=== PATIENT | female | born 1950 | race Two or more races ===

== ENCOUNTER 2024-09-16 09:23 | Inpatient (IN) | payer MEDICARE, MEDICAID ==
[2024-09-16] VITALS (9 sets, daily range): BP systolic 131–147; BP diastolic 60–90; PULSE 60–110; RESP 12–20; TEMP 97.7–98.1; O2SAT 90–99
[~2024-09-16] VITALS: Ht 170.2 cm; Wt 96.6 kg
--- NOTE | 2024-09-16 09:36 | ED.PDOC ---
SOB-HPI HPI Comments 73 y/o F, BIBA, with PMHx of HTN, HLD, COPD, CHF, and anxiety presents to the ED for CC of cp, sob. EMS reports, patient is coming from [facility] where she c/o shortness of breath with associated chest pain x1day. EMS relays, image studies done at the facility show new onset, CHF. Patient denies current chest pain, palpitations, headache, fatigue, or weakness. No other symptoms or modifying factors present at this time. 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 Family History Family History: Unknown Social History Smoker: Quit Less Than 1 Year Alcohol: Denies ETOH Use Drugs: Denies Drug Use Lives In: Home Constitutional: denies: chills, diaphoresis, fatigue, fever, malaise, sweats, weakness, others EENTM: denies: blurred vision, double vision, ear bleeding, ear discharge, ear drainage, ear pain, ear ringing, eye pain, eye redness, hearing loss, mouth pain, mouth swelling, nasal discharge, nose bleeding, nose congestion, nose pain, photophobia, tearing, throat pain, throat swelling, voice changes, others Respiratory: reports: shortness of breath; denies: cough, hemoptysis, orthopnea, SOB at rest, SOB with excertion, stridor, wheezing, others Cardiovascular: reports: chest pain; denies: dizzy spells, diaphoresis, Dyspnea on exertion, edema, irregular heart beat, left arm pain, lightheadedness, palpitations, PND, syncope, others Gastrointestinal: denies: abdomen distended, abdominal pain, blood streaked bowels, constipated, diarrhea, dysphagia, difficulty swallowing, hematemesis, melena, nausea, poor appetite, poor fluid intake, rectal bleeding, rectal pain, vomiting, others Genitourinary: denies: abnormal vagina bleeding, burning, dyspareunia, dysuria, flank pain, frequency, hematuria, incontinence, pain, , vagina discharge, urgency, others Neurological: denies: dizziness, fainting, headache, left sided numbness, left sided weakness, numbness, paresthesia, pre-existing deficit, right sided numbness, right sided weakness, seizure, speech problems, tingling, tremors, weakness, others Musculoskeletal: denies: back pain, gout, joint pain, joint swelling, muscle pain, muscle stiffness, neck pain, others Integumetry: denies: bruises, change in color, change in hair/nails, dryness, laceration, lesions, lumps, rash, wounds, others Allergic/Immunocompromised: denies: Difficulty Healing, Frequent Infections, Hives, Itching, others Hematologic/Lymphatic: denies: anemia, blood clots, easy bleeding, easy bruising, swollen glands, others Endocrine: denies: excessive hunger, excessive sweating, excessive thirst, excessive urination, flushing, intolerance to cold, intolerance to heat, unexplained weight gain, unexplained weight loss, others Psychiatric: denies: anxiety, bipolar disorder, depression, hopeless, panic disorder, schizophrenia, sleepless, suicidal, others All Other Systems: Reviewed and Negative Physical Exam General Appearance: No Apparent Distress, Normal HEENT: Normal ENT Inspection, Pharynx Normal Neck: Full Range of Motion, Non-Tender, Normal, Normal Inspection Respiratory: Chest Non-Tender, Lungs Clear, No Accessory Muscle Use, No Respiratory Distress, Normal Breath Sounds Cardiovascular: No Edema, No Murmur, No Gallop, Normal Peripheral Pulses, Regular Rate/Rhythm Breast Exam: Deferred Gastrointestinal: No Organomegaly, Non Tender, No Pulsatile Mass, Normal Bowel Sounds, Soft Genitalia: Deferred Pelvic: Deferred Rectal: Deferred Extremities: No calf tenderness, Normal capillary refill, Normal inspection, Normal range of motion, Non-tender, No pedal edema Musculoskeletal : Apperance: Normal Neurologic: Alert, 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 Was a procedure done?: No Differential Dx Differential Diagnosis: Anxiety, Asthma, Bronchitis, CHF, COPD, Myocardial infarction, Panic Attack, Pneumonia, Pneumothorax, Pulmonary Embolism, Respiratory Distress, Sinusitis, Pharyngitis, URI X-Ray, Labs, Meds, VS Vital Signs Date Time Temp Pulse Resp B/P (MAP) Pulse Ox O2 Delivery O2 Flow Rate FiO2 09/16/24 09:39 98.4 63 20 147/90 (109) 96 98.4 Lab Test 09/16/24 10:10 Range/Units White Blood Count 11.6 H 4.4-10.8 10^3/uL Red Blood Count 6.06 H 4.0-5.20 10^6/uL Hemoglobin 17.3 H 12.2-16.2 g/dL Hematocrit 51.9 H 36.0-46.0 % Mean Corpuscular Volume 85.6 80.0-100.0 fL Mean Corpuscular Hemoglobin 28.6 28.0-32.0 pg Mean Corpuscular Hemoglobin Concent 33.4 32.0-36.0 g/dL Red Cell Distribution Width 15.3 H 11.8-14.3 % Platelet Count 270 140-450 10^3/uL Mean Platelet Volume 8.6 6.9-10.8 fL Neutrophils (%) (Auto) 69.7 37.0-80.0 % Lymphocytes (%) (Auto) 22.9 10.0-50.0 % Monocytes (%) (Auto) 6.7 0.0-12.0 % Eosinophils (%) (Auto) 0.3 0.0-7.0 % Basophils (%) (Auto) 0.4 0.0-2.0 % Neutrophils # (Auto) 8.1 1.6-8.6 10 ^3/uL Lymphocytes # (Auto) 2.7 0.4-5.4 10 ^3/uL Monocytes # (Auto) 0.8 0-1.3 10 ^3/uL Eosinophils # (Auto) 0 0-0.8 10 ^3/uL Basophils # (Auto) 0 0-0.2 10 ^3/uL Nucleated Red Blood Cells 0.3 % Sodium Level 142 136-145 mmol/L Potassium Level 3.9 3.5-5.1 mmol/L Chloride Level 102 98-107 mmol/L Carbon Dioxide Level 31 20-31 mmol/L Anion Gap 9 5-15 Blood Urea Nitrogen 11 9-23 mg/dL Creatinine 0.80 0.550-1.02 mg/dL Glomerular Filtration Rate Calc 78 >90 mL/min BUN/Creatinine Ratio 13.8 10.0-20.0 Serum Glucose 105 74-106 mg/dL Calcium Level 10.2 8.7-10.4 mg/dL Troponin I High Sensitivity 10 </=34 ng/L B-Type Natriuretic Peptide 53.49 0-100 pg/mL [address] [address] Ph: [phone] DIAGNOSTIC IMAGING Diagnostic Imaging Report : [id number] Signed PATIENT: BLANQUITA GREGG ACCT: [id number] UNIT: [id number] : 1950 LOC: ER ROOM / BED: / AGE / SEX: 73 / F ADM STATUS: REG ER SERVICE 5 ORDERING PHYSICIAN: CINTHYA HERNANDEZ MD PROCEDURE(s): CXRP - CHEST PORTABLE REASON: cp, sob ORDER NUMBER(s): [id number], ACCESSION NUMBER(s): [id number] XY CHEST PORTABLE, HISTORY: cp, sob COMPARISON: None None TECHNICAL DATA: 1 view of the chest was obtained. FINDINGS: Lines and tubes: None Cardiomediastinal silhouette: Prominent Pulmonary vasculature: normal Lung expansion: normal Lung airspace: normal Lung interstitium: normal Pleura: normal Pneumothorax: no Bones: Unremarkable Other: no IMPRESSION: No acute intrathoracic abnormality. Cardiomegaly. ATED BY: ARMEN DAS MD DICTATED DATE/TIME: 09/16/241005 SIGNED BY: ARMEN DAS MD SIGNED DATE/TIME: 09/16/241005 CC: Time of 1ST Reevaluation: 10:00 Reevaluation 1ST: Unchanged Patient Education/Counseling: Diagnosis, Treatment, Prognosis, Need For Follow Up Family Education/Counseling: No Family Present Additional Information The following tests were ordered, and results were reviewed by me: CBC, BMP, B- TYPE NATRIURETIC, TROPONIN, CXR Additional Information was gathered from interviewing the following independent historians: EMS I reviewed and agreed with the following test results read by other providers: CXR I discussed treatment and results with medical personnel and: patient Comprehensive systems review obtained and negative except for what is stated in the HPI. Departure 1 Departure Time of Disposition: 11:33 Impression: Primary Impression: CHF (congestive heart failure) Qualified Codes: I50.21 - Acute systolic (congestive) heart failure Additional Impression: Unstable angina Disposition: ADMITTED INPATIENT Admit to: Tele Condition: Serious Discharged With: Self Critical Care Note Critical Care Time?: Yes (45 min-critical care time only) Critical care comment: pt did not have nuchal rigidity, no rash, no photophobia, no cltered mentation. he has myalgia, as his brother. they likley have a viral infection. he is feeling much improved after toradol. he is stable for discharge Stability Stability form required: No Heart Score Heart Score: Heart Score Response (Comments) Value History Highly Suspicious 2 EKG Repolarization Disturb 1 Age >65 2 Risk Factors >3 or Hx ASHD 2 Troponin Normal limit 0 Total 7 I personally scribed for CINTHYA HERNANDEZ MD ([email or web address]) on 09/16/24 at 09:36. Electronically submitted by Rosalba Hurt ([employer]). I personally scribed for CINTHYA HERNANDEZ MD (DORIANadjust) on 09/16/24 at 09:39. Electronically submitted by Rosalba Hurt ([employer]). I personally scribed for CINTHYA HERNANDEZ MD (CHRISTINAHA) on 09/16/24 at 09:44. Electronically submitted by Rosalba Hutr ([employer]). I personally scribed for CINTHYA HERNANDEZ MD (DORIANLIN) on 09/16/24 at 09:59. Electronically submitted by Rosalba Hurt ([employer]). I personally scribed for CINTHYA HERNANDEZ MD (CHRISTINA) on 09/16/24 at 10:14. Electronically submitted by Rosalba Hurt ([employer]). I personally scribed for CINTHYA HERNANDEZ MD (DORIANLINHA) on 09/16/24 at 10:15. Electronically submitted by Rosalba Hurt ([employer]). CINTHYA HERNANDEZ MD Sep 16, 2024 09:36
--- NOTE | 2024-09-16 10:08 | DVH ---
XY CHEST PORTABLE, HISTORY: cp, sob COMPARISON: None None TECHNICAL DATA: 1 view of the chest was obtained. FINDINGS: Lines and tubes: None Cardiomediastinal silhouette: Prominent Pulmonary vasculature: normal Lung expansion: normal Lung airspace: normal Lung interstitium: normal Pleura: normal Pneumothorax: no Bones: Unremarkable Other: no IMPRESSION: No acute intrathoracic abnormality. Cardiomegaly.
[2024-09-16 10:30] LABS: Eosinophils # (auto) 0 10 ^3/uL (0-0.8); Eosinophils % (auto) 0.3 % (0.0-7.0)
[2024-09-16 10:31] LABS: Basophils # (auto) 0 10 ^3/uL (0-0.2); Basophils % (auto) 0.4 % (0.0-2.0); Hematocrit 51.9 % (36.0-46.0); Hemoglobin 17.3 g/dL (12.2-16.2); Lymphocytes # (auto) 2.7 10 ^3/uL (0.4-5.4); Lymphocytes % (auto) 22.9 % (10.0-50.0); Mean Corpuscular Hemoglobin 28.6 pg (28.0-32.0); Mean Corpuscular Hgb Conc. 33.4 g/dL (32.0-36.0); Mean Corpuscular Volume 85.6 fL (80.0-100.0); Monocytes # (auto) 0.8 10 ^3/uL (0-1.3); Monocytes % (auto) 6.7 % (0.0-12.0); Neutrophils # (auto) 8.1 10 ^3/uL (1.6-8.6); Neutrophils % (auto) 69.7 % (37.0-80.0); Nucleated Red Blood Cells % 0.3 %; Platelet Count (auto) 270 10^3/uL (140-450); Red Blood Cells 6.06 10^6/uL (4.0-5.20); Red Cell Distribution Width 15.3 % (11.8-14.3); White Blood Cell 11.6 10^3/uL (4.4-10.8)
[2024-09-16 10:39] LABS: Chloride 102 mmol/L (98-107); Potassium 3.9 mmol/L (3.5-5.1); Sodium 142 mmol/L (136-145)
[2024-09-16 10:41] LABS: Calcium 10.2 mg/dL (8.7-10.4)
[2024-09-16 10:45] LABS: Glucose 105 mg/dL (74-106)
[2024-09-16 10:46] LABS: BUN/Creatinine Ratio 13.8 (10.0-20.0); Blood Urea Nitrogen 11 mg/dL (9-23)
[2024-09-16 11:15] LABS: Anion Gap 9 (5-15); Carbon Dioxide 31 mmol/L (20-31)
--- NOTE | 2024-09-16 11:43 | DVHHP2 ---
History of Present Illness Reason for Visit: Transfer from [facility] History of Present Illness 73-year-old female past medical history hypertension hyperlipidemia COPD CHF 81 does have home O2 occurs denies any surgical history chief complaint patient appears from [facility] according to her she has been having chest pain and shortness of the breath he has been going on for the last two days patient states the pain in her chest feels like indigestion. She went to a [facility] was seen and did a cardiac workup and they recommended patient to be transferred here for continued cardiac care patient had last completed in D-dimer at [facility] which negative for PE when speaking with the patient felt her heart doctor she stated lost follow up due to insurance issues patient is currently on oxygen with shortness of the breath on exertion she has been back pain or leg swelling I reviewed data from [facility] she was given Lasix 40 mg IV patient appears lisinopril simvastatin Lexapro at home when evaluating patient's labs and imaging white count six hemoglobin 17.36 CMP was unremarkable troponin was negative BNP was chest patient is a smoker sensation with the urine ago with these findings we will admit and cardiac workup or axial potassium steroids for COPD and ask for Cardiology consultation Past Medical History See HPI above Past Surgical History see HPI above Family History Reviewed, non-contributory to the management of this case. Past Social History Patient was a smoker but quit some time ago proximally >1 yr denies drug or alcohol use Review of Systems Constitutional: No: Fever, Chills, Sweats, Weakness, Malaise, Other Eyes: No: Pain, Vision change, Conjunctivae inflammation, Eyelid inflammation, Other, Redness ENT: No: Ear pain, Ear discharge, Nose pain, Nose discharge, Nose congestion, Mouth pain, Mouth swelling, Throat pain, Throat swelling, Other Respiratory: Shortness of breath, SOB with excertion; No: Cough, Dry, Wheezing, Hemoptysis, Pleuritic Pain, Sputum, Wheezing, Other Cardiovascular: Chest Pain; No: Palpitations, Orthopnea, Paroxysmal Noc. Dyspnea, Edema, Lt Headedness, Other Gastrointestinal: No: Nausea, Vomiting, Abdominal Pain, Diarrhea, Constipation, Melena, Hematochezia, Other Genitourinary: No Dysuria, No Frequency, No Incontinence, No Hematuria, No Retention, No Other Musculoskeletal: No: other, neck pain, shoulder pain, arm pain, back pain, hand pain, leg pain, foot pain Skin: No: Rash, Lesions, Jaundice, Bruising, Other Neurological: No: Weakness, Numbness, Incoordination, Change in speech, Confusion, Seizures, Other Allergies: Coded Allergies: NO KNOWN ALLERGIES (Unverified , 09/16/24) Exam Vital Signs Vital Signs Date Time Temp Pulse Resp B/P (MAP) Pulse Ox O2 Delivery O2 Flow Rate FiO2 09/16/24 09:39 98.4 63 20 147/90 (109) 96 98.4 General Appearance: Alert, Oriented X3, Cooperative, No acute distress HEENT: Atraumatic, PERRLA, EOMI, Mucous membr. moist/pink Respiratory: Other (diminished throught) Cardiovascular: Regular rate, Normal S1, Normal S2, No murmurs Abdominal: Normal bowel sounds, Soft, No tenderness, No hepatospenomegaly, No masses Extremities: No clubbing, No cyanosis, No edema, Normal pulses, No tenderness/swelling Skin: No rashes, No breakdown, No significant lesion Neuro: Normal gait, Normal speech, Strength at 5/5 X4 ext, Normal tone, Sensation intact Psych/Mental Status: Mental status NL, Mood NL Labs/Xrays Chest x-ray unremarkable I reviewed labs, imaging CT scan abdomen pelvis, EKG and all diagnostic studies on this patient from ED records and the medical chart Labs Test 09/16/24 10:10 Range/Units White Blood Count 11.6 H 4.4-10.8 10^3/uL Red Blood Count 6.06 H 4.0-5.20 10^6/uL Hemoglobin 17.3 H 12.2-16.2 g/dL Hematocrit 51.9 H 36.0-46.0 % Mean Corpuscular Volume 85.6 80.0-100.0 fL Mean Corpuscular Hemoglobin 28.6 28.0-32.0 pg Mean Corpuscular Hemoglobin Concent 33.4 32.0-36.0 g/dL Red Cell Distribution Width 15.3 H 11.8-14.3 % Platelet Count 270 140-450 10^3/uL Mean Platelet Volume 8.6 6.9-10.8 fL Neutrophils (%) (Auto) 69.7 37.0-80.0 % Lymphocytes (%) (Auto) 22.9 10.0-50.0 % Monocytes (%) (Auto) 6.7 0.0-12.0 % Eosinophils (%) (Auto) 0.3 0.0-7.0 % Basophils (%) (Auto) 0.4 0.0-2.0 % Neutrophils # (Auto) 8.1 1.6-8.6 10 ^3/uL Lymphocytes # (Auto) 2.7 0.4-5.4 10 ^3/uL Monocytes # (Auto) 0.8 0-1.3 10 ^3/uL Eosinophils # (Auto) 0 0-0.8 10 ^3/uL Basophils # (Auto) 0 0-0.2 10 ^3/uL Nucleated Red Blood Cells 0.3 % Sodium Level 142 136-145 mmol/L Potassium Level 3.9 3.5-5.1 mmol/L Chloride Level 102 98-107 mmol/L Carbon Dioxide Level 31 20-31 mmol/L Anion Gap 9 5-15 Blood Urea Nitrogen 11 9-23 mg/dL Creatinine 0.80 0.550-1.02 mg/dL Glomerular Filtration Rate Calc 78 >90 mL/min BUN/Creatinine Ratio 13.8 10.0-20.0 Serum Glucose 105 74-106 mg/dL Calcium Level 10.2 8.7-10.4 mg/dL Troponin I High Sensitivity 10 </=34 ng/L B-Type Natriuretic Peptide 53.49 0-100 pg/mL Assessment/Plan Assessment/Plan acute chest pain r/o acs trop x3 negative ekg no stemi ordered asa atorvastatin ordered Echocardiogram follow-up results ordered ddimer ordered morphine as needed for pain, ordered nitro prn cxr normal ordered ddimer acute on chronic chf exacerbation cxr normal ordered lasix bid ordered echo fu results ordered cards consult fu recs acute copd exacerbation ddimer was negative from outside records cont o2 to keep sats >92% ordered prednisone x 5 days ordered abg fu results chronic problems htn hld copd ordered duoneb prn prednisone chf bnp normal not likely exacerbation cxr normal cont home medication anxiety gerds protonix fen/ppx diet hl scd lovenox no gi ppx since no hx of gerds or gi bleed plan admit to tele cards consult Plan discussed with: Patient Date of Service: Sep 16, 2024 Billing Provider: DONALD OROURKE DNP Common Visit Codes: [id number] INP/OBS CARE (HIGH) DONALD OROURKE DNP Sep 16, 2024 11:43
[2024-09-16] MEDS ORDERED: NITROGLYCERIN 0.4 MG SL TAB SL PRN ×3 (12:15)
[2024-09-16] MEDS ORDERED: DOCUSATE SOD 100 MG CAP PO PRN (12:15)
[2024-09-16] MEDS ORDERED: MORPHINE SULFATE 4 MG/ML SYR/VIAL IV PRN (12:15)
[2024-09-16] MEDS ORDERED: ONDANSETRON HCL 4 MG/2 ML VIAL IV PRN (12:15)
[2024-09-16] MEDS: predniSONE 20 MG TAB PO ONE (12:30)
[2024-09-16] MEDS: PANTOPRAZOLE 40 MG/10 ML VIAL INJ IV ONE (15:48)
[2024-09-16] MEDS: ENOXAPARIN SOD 40 MG/0.4 ML SYRINGE SC SCH (15:49)
[2024-09-16] MEDS: hydrALAZINE HCL 20 MG/ML VL IV ONE (15:49)
[2024-09-16 16:18] LABS: Urine Bacteria None Seen /hpf (None Seen)
[2024-09-16 16:45] LABS: Urine Blood Negative /uL (Negative); Urine Clarity Clear (Clear); Urine Color Light-Yellow (Yellow); Urine Hyaline Cast FEW /lpf (0 - 2); Urine Mucus FEW (None Seen); Urine Protein, UAD TRACE (Negative); Urine Squamous Epithelial Cell None Seen /hpf (<5); Urine Urobilinogen Normal (Negative); Urine WBC 1 /HPF (0-5); Urine pH 5.5 (5.0-9.0)
[2024-09-16] MEDS: amLODIPine BESYLATE 5 MG TAB PO ONE (16:45)
--- NOTE | 2024-09-16 16:47 | DVHINCON2 ---
Date Seen: Sep 16, 2024 Referring Physician Niranjan Reason for Consultation CHF, CP History of Present Illness 73-year-old female with PMH for HLD, HTN, COPD, CHF, hypoxia on home O2 presented to [facility] with chest pain and worsening shortness of breath. Per patient symptoms started approximately 2 days prior and has been having worsening shortness of breath. Started having intermittent chest pain therefore presented to the hospital. Patient is transferred to [facility] for continued care. Chest pain noted to be retrosternal, nonradiating, sharp in nature, reproducible with deep inhalation, associated with shortness of breath. Troponin negative x2. BNP 53. CXR negative for acute intrathoracic abnormality. EKG negative for acute ischemic changes. Past Medical History As stated above Past Surgical History Denies previous cardiac surgeries Family History Denies any pertinent family cardiac history Social History Denies alcohol or illicit drug use, patient was a previous smoker quit approximately 1-2 years ago. Allergies: Coded Allergies: NO KNOWN ALLERGIES (Unverified , 09/16/24) Current Medications Current Medications Medications (Trade) Dose Ordered Sig/Jeanie Route PRN Reason Start Time Stop Time Status Last Admin Ondansetron HCl (Zofran) 4 mg Q4HP PRN IV NAUSEA / VOMITING 09/16/24 12:15 Docusate Sodium (Colace Capsule) 100 mg BIDPRN PRN PO FOR CONSTIPATION 09/16/24 12:15 09/16/24 12:30 DC Morphine Sulfate 2 mg Q4HPRN PRN IV SEVERE PAIN (7-10 PAIN SCALE) 09/16/24 12:15 Enoxaparin Sodium (Lovenox) 40 mg DAILY SC 09/16/24 12:15 09/16/24 15:49 Nitroglycerin (Ntrostat Sublingual) 0.4 mg Q5MINP PRN SL FOR CHEST PAIN 09/16/24 12:15 Aspirin 81 mg DAILY PO 09/17/24 10:00 Atorvastatin Calcium (Lipitor) 40 mg HS PO 09/16/24 22:00 Morphine Sulfate 2 mg Q30MP PRN IV FOR CHEST PAIN 09/16/24 12:15 Docusate Sodium (Colace Capsule) 100 mg DAILY PO 09/17/24 10:00 Nitroglycerin (Ntrostat Sublingual) 0.4 mg Q5MINP PRN SL FOR CHEST PAIN 09/16/24 12:15 09/16/24 12:30 DC Ondansetron HCl (Zofran) 4 mg Q4HP PRN IV NAUSEA / VOMITING 09/16/24 12:15 09/16/24 12:30 DC Nitroglycerin (Ntrostat Sublingual) 0.4 mg Q5MINP PRN SL FOR CHEST PAIN 09/16/24 12:15 09/16/24 12:30 DC Albuterol (Ventolin Medneb) 2.5 mg Q4HPRN PRN NEB SHORTNESS OF BREATH 09/16/24 12:15 Ipratropium [place] (Atrovent Medneb) 0.5 mg Q4HPRN PRN NEB SHORTNESS OF BREATH 09/16/24 12:15 Pantoprazole Sodium (Protonix) 40 mg DAILY IV 09/17/24 10:00 Furosemide (Lasix Injection) 40 mg BIDD IV 09/16/24 18:00 Prednisone 60 mg DAILY PO 09/17/24 10:00 Amlodipine Besylate (Norvasc Tablet) 10 mg DAILY PO 09/17/24 10:00 Review of Systems Constitutional: No: Fever, Chills, Sweats, Weakness, Malaise, Other Eyes: No: Pain, Vision change, Conjunctivae inflammation, Eyelid inflammation, Other, Redness ENT: No: Ear pain, Ear discharge, Nose pain, Nose discharge, Nose congestion, Mouth pain, Mouth swelling, Throat pain, Throat swelling, Other Respiratory: No: Cough, Dry, Shortness of breath, SOB with exertion, Wheezing, Hemoptysis, Pleuritic Pain, Sputum, Wheezing, Other Cardiovascular: ; No: Chest Pain Palpitations, Orthopnea, Paroxysmal Noc. Dyspnea, Edema, Lt Headedness, Other Gastrointestinal: No: Nausea, Vomiting, Abdominal Pain, Diarrhea, Constipation, Melena, Hematochezia, Other Genitourinary: No Dysuria, No Frequency, No Incontinence, No Hematuria, No Retention, No Other Musculoskeletal: neck pain; No: other, shoulder pain, arm pain, back pain, hand pain, leg pain, foot pain Skin: No: Rash, Lesions, Jaundice, Bruising, Other Neurological: Other (Dizziness, headache.); No: Weakness, Numbness, Incoordination, Change in speech, Confusion, Seizures Vital Signs Vital Signs Date Time Temp Pulse Resp B/P (MAP) Pulse Ox O2 Delivery O2 Flow Rate FiO2 6/15/25 16:17 88 20 96 Nasal Cannula* 3 32 09/16/24 15:49 180/89 09/16/24 15:35 98.0 98.0 Physical Exam General appearance: Patient is well-developed, well-nourished, in mild acute distress. HEENT: Exam shows: Normocephalic, atraumatic, PERRLA, EOMI Neck: Supple, no bruits Chest: Equal chest excursion bilaterally. Breath sounds expiratory wheezes, diminished. Heart: Rhythm: Regular rate; no murmur or gallop Abdomen: Exam shows: Soft, nontender, nondistended Musculoskeletal: No clubbing, no cyanosis, trace lower extremity edema Dermatology: Skin warm, moist. Neurological: Exam shows: Alert and oriented x4, normal speech Available prior records, labs, EKG, rhythm strips reviewed and interpreted Labs/Diagnostic Data Labs Test 09/16/24 16:18 09/16/24 12:39 09/16/24 10:10 Range/Units Troponin I High Sensitivity 8 </=34 ng/L White Blood Count 11.6 H 4.4-10.8 10^3/uL Red Blood Count 6.06 H 4.0-5.20 10^6/uL Hemoglobin 17.3 H 12.2-16.2 g/dL Hematocrit 51.9 H 36.0-46.0 % Mean Corpuscular Volume 85.6 80.0-100.0 fL Mean Corpuscular Hemoglobin 28.6 28.0-32.0 pg Mean Corpuscular Hemoglobin Concent 33.4 32.0-36.0 g/dL Red Cell Distribution Width 15.3 H 11.8-14.3 % Platelet Count 270 140-450 10^3/uL Mean Platelet Volume 8.6 6.9-10.8 fL Neutrophils (%) (Auto) 69.7 37.0-80.0 % Lymphocytes (%) (Auto) 22.9 10.0-50.0 % Monocytes (%) (Auto) 6.7 0.0-12.0 % Eosinophils (%) (Auto) 0.3 0.0-7.0 % Basophils (%) (Auto) 0.4 0.0-2.0 % Neutrophils # (Auto) 8.1 1.6-8.6 10 ^3/uL Lymphocytes # (Auto) 2.7 0.4-5.4 10 ^3/uL Monocytes # (Auto) 0.8 0-1.3 10 ^3/uL Eosinophils # (Auto) 0 0-0.8 10 ^3/uL Basophils # (Auto) 0 0-0.2 10 ^3/uL Nucleated Red Blood Cells 0.3 % Sodium Level 142 136-145 mmol/L Potassium Level 3.9 3.5-5.1 mmol/L Chloride Level 102 98-107 mmol/L Carbon Dioxide Level 31 20-31 mmol/L Anion Gap 9 5-15 Blood Urea Nitrogen 11 9-23 mg/dL Creatinine 0.80 0.550-1.02 mg/dL Glomerular Filtration Rate Calc 78 >90 mL/min BUN/Creatinine Ratio 13.8 10.0-20.0 Serum Glucose 105 74-106 mg/dL Calcium Level 10.2 8.7-10.4 mg/dL B-Type Natriuretic Peptide 53.49 0-100 pg/mL Assessment * Chest pain -atypical, likely pleuritic in nature. Troponins negative. EKG negative for acute ischemic changes. Follow up echo. Continue on aspirin and statin. Outpatient follow up with Cardiology recommended. * Chronic CHF -does not seem overloaded, CXR negative, BNP negative. Not likely exacerbation. Continue monitoring fluid volume status. * Chronic hypoxic respiratory failure, COPD exacerbation -continue bronchodilators, steroids. Management per primary team. * Uncontrolled HTN - on amlodipine 10 mg p.o. daily, continue trending. P.r.n. as needed. Case Discussed with Dr Stafford. Chest pain atypical, ACS unlikely. Follow up echo. Patient with HX of CHF, does not seem to be overloaded, BNP negative, CXR negative for congestion. Monitor fluid volume status. Symptoms likely in setting of COPD exacerbation. No further cardiac workup indicated in setting of not significantly abnormality on echo. Please call with any questions or concerns. Critical care, time spent: 40 minutes This medical document was created using an electronic medical record system with voice recognition software and computerized dictation system. Although this document has been carefully reviewed, there might still be some phonetic and typographical errors. Occasional wrong-word or ``sound-alike substitutions may have occurred due to the inherent limitations of voice recognition software. These areas are purely typographical due to imperfections of the software programs and do not reflect any compromise in the patient's medical care. Please read the chart carefully and recognize, using context, where these substitutions have occurred. Thank you for allowing me to participate in the management of this patient. The treatment plan was discussed with and agreed upon by patient/family including requesting consultants and ordering of imaging/procedures. Plan discussed with: Patient NYHA Physical activity limitations: Class3(Marked) ordinary Date of Service: Sep 16, 2024 Billing Provider: JORDON POLANCO Cardiology Common Codes: [id number] INP/OBS CARE (High), [id number] CARE 30-74 MIN JORDON POLANCO Sep 16, 2024 16:47
--- NOTE | 2024-09-16 17:02 | DVH ---
CT HEAD WITHOUT CONTRAST INDICATION: DIZZINESS COMPARISON: None TECHNIQUE: CT of the head without intravenous contrast. RADIATION DOSE: CTDIvol: 144 mGy, DLP: 2465 mGy*cm FINDINGS: Patient was rescanned due to motion. The repeat images have [id number] motion and streak artif act. There is no evidence of acute intracranial hemorrhage, extra-axial collection, mass effect, midline s hift, herniation or hydrocephalus. The ventricles, sulci and cisterns are age appropriate. Partially empty sella is commonly age-related . The bryant-white differentiation is intact. Mild periventricular, deep, and subcortical white matter hypoattenuation is nonspecific but commonly due to chronic microvascular ischemia. Minimal mucosal thickening in the left maxillary sinus. Mastoids are clear. Bilateral lens replacem ents The surrounding soft tissues and osseous structures are unremarkable. IMPRESSION: No evidence of acute intracranial abnormalities.
--- NOTE | 2024-09-16 18:14 | DVHSR ---
APPROVED REPORT EXAM: Two-dimensional and M-mode echocardiogram with Doppler and color Doppler. Blood Pressure: 147/90 mmHg INDICATION Chest Pain RISK FACTORS Height: 5'7", Weight: 198 DIMENSIONS LVDd4.7 (3.8-5.7cm)LA (2D) (1.9-4.0cm)Aortic Root3.4 (2.0-3.7cm) LVDs2.9 (2.5-4.0cm)LA (MM) (1.9-4.0cm)Aortic Cusp Exc1.9 (1.5-2.0cm) EF (%) 70.0 (55-70%)Rt. Atrium (1.9-4.0cm)Asc. Aorta cm IVSd1.2 (0.7-1.1cm)RV (D) (1.8-2.4cm) PWd1.4 (0.7-1.1cm) Mitral Valve MitralMitral Stenosis E wave0.80m/sMV Mean GR.mmHg A wave0.98m/sMV Peak GR.mmHg E/A ratio0.82D MVAcm2 DECEL [id number] 1/2 [place] Aortic Valve Aortic ValveAortic Stenosis V11.07m/Katerine Mean GR.4mmHg V21.50m/Katerine Peak GR.9mmHg LVOT Diameter2.2 (1.8-2.4cm)Doppler AVA2.71cm2 Pulmonic Valve V20.80m/s Other Information Quality : Technically LimitedRhythm : Technically limited study due to body habitus, patient lying flat unable to turn. Conclusion Sinus rhythm. LVH with mild LV enlargement. Valves are normal. Left ventricular function is preserved at 60% with normal RV function. Dopplers unremarkable. There is a small pericardial effusion not hemodynamically significant. No intracardiac masses thrombi or vegetations discernible.
[2024-09-16] MEDS: ATORVASTATIN 20 MG TAB PO SCH (21:56)
[2024-09-17] VITALS (12 sets, daily range): BP systolic 105–124; BP diastolic 53–75; PULSE 56–86; RESP 16–24; TEMP 97.7–98.3; O2SAT 91–98
[2024-09-17] MEDS: FUROSEMIDE 40 MG/4 ML VIAL IV SCH (05:27)
[2024-09-17 08:20] LABS: Basophils # (auto) 0 10 ^3/uL (0-0.2); Basophils % (auto) 0.2 % (0.0-2.0); Eosinophils # (auto) 0 10 ^3/uL (0-0.8); Eosinophils % (auto) 0.2 % (0.0-7.0); Hematocrit 51.7 % (36.0-46.0); Hemoglobin 17.3 g/dL (12.2-16.2); Lymphocytes # (auto) 2.1 10 ^3/uL (0.4-5.4); Lymphocytes % (auto) 15.7 % (10.0-50.0); Mean Corpuscular Hemoglobin 28.9 pg (28.0-32.0); Mean Corpuscular Hgb Conc. 33.4 g/dL (32.0-36.0); Mean Corpuscular Volume 86.4 fL (80.0-100.0); Monocytes % (auto) 7.3 % (0.0-12.0); Neutrophils # (auto) 10.3 10 ^3/uL (1.6-8.6); Neutrophils % (auto) 76.6 % (37.0-80.0); Nucleated Red Blood Cells % 0.2 %; Platelet Count (auto) 249 10^3/uL (140-450); Red Blood Cells 5.99 10^6/uL (4.0-5.20); Red Cell Distribution Width 15.2 % (11.8-14.3); White Blood Cell 13.4 10^3/uL (4.4-10.8)
[2024-09-17 08:29] LABS: Albumin 4.6 g/dL (3.2-4.8); Alkaline Phosphatase 57 U/L (46-116); Anion Gap 11 (5-15); Aspartate Aminotransferase 10 U/L (<34); Blood Urea Nitrogen 17 mg/dL (9-23); Calcium 10.2 mg/dL (8.7-10.4); Carbon Dioxide 30 mmol/L (20-31); Chloride 101 mmol/L (98-107); Glucose 89 mg/dL (74-106); Potassium 4.1 mmol/L (3.5-5.1); Sodium 142 mmol/L (136-145); Total Protein 7.1 g/dL (5.7-8.2)
[2024-09-17 08:32] LABS: Alanine Aminotransferase < 9 U/L (7-40)
[2024-09-17] MEDS: IPRATROPIUM BROM 0.5 MG/2.5ML INH SOL NEB PRN (09:07)
[2024-09-17] MEDS: ALBUTEROL SULF 2.5 MG/0.5ML(0.5%) NEB SOLN NEB PRN (09:07)
[2024-09-17] MEDS: PANTOPRAZOLE 40 MG/10 ML VIAL INJ IV SCH (09:32)
[2024-09-17] MEDS: ASPirin 81 mg TAB PO SCH (09:33)
[2024-09-17] MEDS: DOCUSATE SOD 100 MG CAP PO SCH (09:35)
[2024-09-17] MEDS: predniSONE 20 MG TAB PO SCH (09:35)
[2024-09-17] MEDS: amLODIPine BESYLATE 5 MG TAB PO SCH (09:36)
[2024-09-17] MEDS ORDERED: ESCI20TA PO (12:13)
[2024-09-17] MEDS ORDERED: LISI40TA16 PO (12:13)
[2024-09-17] MEDS ORDERED: ATOR20TA50 PO (12:13)
[2024-09-17] MEDS ORDERED: ALBUAER3 IN (12:13)
--- NOTE | 2024-09-17 16:25 | DVHPN2 ---
Progress Note Date Seen: Sep 17, 2024 Medical Necessity Reason Pt with a Central, PICC or Fol: Yes The following are medically ne: Moore Catheter Reason for moore catheter: Strict I&O Subjective Patient reports: No new complaints Review of Systems: HEENT:Normal, CVS:Normal, RESPIRATORY:Normal, GI:Normal, :Normal, MSK:Normal, NEURO:Normal Objective vital signs Vital Sign Date Time Temp Pulse Resp B/P (MAP) Pulse Ox O2 Delivery O2 Flow Rate FiO2 09/17/24 13:00 97.8 86 20 124/57 (79) 93 97.8 09/17/24 09:07 Nasal Cannula 3.0 09/17/24 09:07 32 Total Intake and Output 09/16/24 09/16/24 09/17/24 15:00 23:00 07:00 Intake Total 240 ml 105 ml Output Total 1000 ml Balance 240 ml -895 ml medications Current Medications Medications Dose Ordered Sig/Jeanie Route Start Time Stop Time Status Last Admin Dose Admin Ondansetron HCl 4 mg Q4HP PRN IV 09/16/24 12:15 Morphine Sulfate 2 mg Q4HPRN PRN IV 09/16/24 12:15 Enoxaparin Sodium 40 mg DAILY SC 09/16/24 12:15 09/17/24 09:33 40 MG Nitroglycerin 0.4 mg Q5MINP PRN SL 09/16/24 12:15 Aspirin 81 mg DAILY PO 09/17/24 10:00 09/17/24 09:33 81 MG Atorvastatin Calcium 40 mg HS PO 09/16/24 22:00 09/16/24 21:56 40 MG Morphine Sulfate 2 mg Q30MP PRN IV 09/16/24 12:15 Docusate Sodium 100 mg DAILY PO 09/17/24 10:00 09/17/24 09:35 100 MG Albuterol 2.5 mg Q4HPRN PRN NEB 09/16/24 12:15 09/17/24 09:07 2.5 MG Ipratropium [place] 0.5 mg Q4HPRN PRN NEB 09/16/24 12:15 09/17/24 09:07 0.5 MG Pantoprazole Sodium 40 mg DAILY IV 09/17/24 10:00 09/17/24 09:32 40 MG Furosemide 40 mg BIDD IV 09/16/24 18:00 09/17/24 05:27 40 MG Prednisone 60 mg DAILY PO 09/17/24 10:00 09/17/24 09:35 60 MG Amlodipine Besylate 10 mg DAILY PO 09/17/24 10:00 09/17/24 09:36 10 MG Examination: GENERAL:Normal, HEENT:Normal, NECK:Normal, LUNGS:Normal, LUNGS:Abnormal (on oxygen), CVS:Normal, ABDOMEN:Normal, MSK:Normal, SKIN:Normal, NEURO:Normal, :Normal laboratory and microbiology Laboratory Tests 09/17/24 05:33 Test 09/17/24 05:33 Range/Units Serum Glucose 89 74-106 mg/dL Problem List/Assessment/Plan Problem List/Assessment/Plan #1 acute on chronic resp failure: cont oxygen #2 copd with exacerbation: steroids #3 ?pneumonia- gram positive/neg: doxy #4 ? chronic diastolic heart failure #5 anxiety #6 obesity #7 htn advance care planning-full code- time spent 19 mins Plan discussed with: Patient Date of Service: Sep 17, 2024 Billing Provider: JD MORRIS MD Common Visit Codes: [id number] INP/OBS CARE(HIGH) Secondary Visit Codes: [id number] CARE PLAN 30 MINUTES JD MORRIS MD Sep 17, 2024 16:25
[2024-09-17] MEDS: DOXYCYCLINE 100MG/100ML 100 ML IV SCH (16:44)
[2024-09-17] MEDS: CITALOPRAM HYDROBR 20 MG TAB PO ONE (16:44)
[2024-09-17] MEDS: ALBUTEROL SULF 2.5 MG/0.5ML(0.5%) NEB SOLN NEB SCH (19:16)
[2024-09-17] MEDS: IPRATROPIUM BROM 0.5 MG/2.5ML INH SOL NEB SCH (19:16)
[2024-09-17] MEDS: methylPREDNISolone SOD SUCC 40 MG/ML VL IV SCH (21:58)
[2024-09-18] VITALS (15 sets, daily range): BP systolic 108–127; BP diastolic 47–100; PULSE 63–80; RESP 18–20; TEMP 97.8–98.5; O2SAT 92–100
[2024-09-18] MEDS: PANTOPRAZOLE 40 MG TAB PO SCH (06:36)
[2024-09-18] MEDS: CITALOPRAM HYDROBR 20 MG TAB PO SCH (09:27)
--- NOTE | 2024-09-18 16:11 | DVHPN2 ---
Progress Note Date Seen: Sep 18, 2024 Medical Necessity Reason Pt with a Central, PICC or Fol: Yes The following are medically ne: Moore Catheter Reason for moore catheter: Strict I&O Subjective Patient reports: No new complaints Review of Systems: HEENT:Normal, CVS:Normal, RESPIRATORY:Normal, GI:Normal, :Normal, MSK:Normal, NEURO:Normal Objective vital signs Vital Sign Date Time Temp Pulse Resp B/P (MAP) Pulse Ox O2 Delivery O2 Flow Rate FiO2 09/18/24 13:58 69 127/69 (88) 09/18/24 13:00 98.5 20 95 98.5 09/18/24 11:00 Nasal Cannula 3.0 09/18/24 11:00 32 Total Intake and Output 09/17/24 09/17/24 09/18/24 15:00 23:00 07:00 Intake Total 460 ml 1000 ml 300 ml Output Total 450 ml 450 ml Balance 460 ml 550 ml -150 ml medications Current Medications Medications Dose Ordered Sig/Jeanie Route Start Time Stop Time Status Last Admin Dose Admin Ondansetron HCl 4 mg Q4HP PRN IV 09/16/24 12:15 Morphine Sulfate 2 mg Q4HPRN PRN IV 09/16/24 12:15 Enoxaparin Sodium 40 mg DAILY SC 09/16/24 12:15 09/18/24 09:27 40 MG Nitroglycerin 0.4 mg Q5MINP PRN SL 09/16/24 12:15 Aspirin 81 mg DAILY PO 09/17/24 10:00 09/18/24 09:32 81 MG Atorvastatin Calcium 40 mg HS PO 09/16/24 22:00 09/17/24 22:00 40 MG Morphine Sulfate 2 mg Q30MP PRN IV 09/16/24 12:15 Docusate Sodium 100 mg DAILY PO 09/17/24 10:00 09/18/24 09:28 100 MG Albuterol 2.5 mg Q4HPRN PRN NEB 09/16/24 12:15 09/17/24 09:07 2.5 MG Ipratropium [place] 0.5 mg Q4HPRN PRN NEB 09/16/24 12:15 09/17/24 09:07 0.5 MG Amlodipine Besylate 10 mg DAILY PO 09/17/24 10:00 09/18/24 09:28 10 MG Pantoprazole Sodium 40 mg DAILY@0600 PO 09/18/24 06:00 09/18/24 06:36 40 MG Methylprednisolone Sodium Succinate 40 mg BID IV 09/17/24 22:00 09/18/24 09:27 40 MG Doxycycline Hyclate 100 ml @ 50 mls/hr Q12H IV 09/17/24 16:30 09/18/24 03:30 50 MLS/HR Albuterol 2.5 mg Q6HWA NEB 09/17/24 18:00 09/18/24 11:00 2.5 MG Ipratropium [place] 0.5 mg Q6HWA NEB 09/17/24 18:00 09/18/24 11:00 0.5 MG Lorazepam 0.5 mg Q8HP PRN PO 09/17/24 16:30 Citalopram Hydrobromide 40 mg DAILY PO 09/18/24 10:00 09/18/24 09:27 40 MG Examination: GENERAL:Normal, HEENT:Normal, NECK:Normal, LUNGS:Normal, LUNGS:Abnormal (on oxygen), CVS:Normal, ABDOMEN:Normal, MSK:Normal, SKIN:Normal, NEURO:Normal, :Normal laboratory and microbiology Laboratory Tests 09/17/24 05:33 Test 09/17/24 05:33 Range/Units Serum Glucose 89 74-106 mg/dL Problem List/Assessment/Plan Problem List/Assessment/Plan #1 acute on chronic resp failure: cont oxygen #2 copd with exacerbation: steroids #3 ?pneumonia- gram positive/neg: doxy #4 ? chronic diastolic heart failure #5 anxiety #6 obesity #7 htn advance care planning-full code- time spent 19 mins Plan discussed with: Patient My Orders My Orders Orders - JD MORRIS MD Procedure Category Date Status Time Pantoprazole Tablet PHA 09/18/24 In Process (Protonix Tablet) 06:00 Methylprednisolone PHA 09/17/24 In Process Sod Succ (Solu Medrol 22:00 Doxycycline PHA 09/17/24 In Process 100mg/100ml 16:30 Albuterol Medneb PHA 09/17/24 In Process (Ventolin Medneb) 18:00 Ipratropium Medneb PHA 09/17/24 In Process (Atrovent Medneb) 18:00 Pt Request For Service PT 09/17/24 Logged 16:19 Lorazepam Tablet PHA 09/17/24 In Process (Ativan Tablet) 16:30 Citalopram Tablet PHA 09/18/24 In Process (Celexa Tablet) 10:00 Date of Service: Sep 18, 2024 Billing Provider: JD MORRIS MD Common Visit Codes: [id number] INP/OBS CARE(HIGH) JD MORRIS MD Sep 18, 2024 16:11
[2024-09-18] MEDS: ACETAMINOPHEN 325 MG TAB PO PRN (18:44)
[2024-09-19] VITALS (15 sets, daily range): BP systolic 121–142; BP diastolic 63–81; PULSE 60–78; RESP 16–21; TEMP 96.5–98.1; O2SAT 93–97
--- NOTE | 2024-09-19 14:32 | DVHPN2 ---
Progress Note Date Seen: Sep 19, 2024 Medical Necessity Reason Pt with a Central, PICC or Fol: No Subjective Patient reports: No new complaints Review of Systems: HEENT:Normal, CVS:Normal, RESPIRATORY:Normal, GI:Normal, :Normal, MSK:Normal, NEURO:Normal Objective vital signs Vital Sign Date Time Temp Pulse Resp B/P (MAP) Pulse Ox O2 Delivery O2 Flow Rate FiO2 09/19/24 12:47 97.4 60 21 121/69 (86) 93 97.4 09/19/24 12:15 2.0 28 09/19/24 11:28 Nasal Cannula Total Intake and Output 09/18/24 09/18/24 09/19/24 15:00 23:00 07:00 Intake Total 360 ml 1200 ml 850 ml Output Total 1150 ml 1250 ml Balance 360 ml 50 ml -400 ml medications Current Medications Medications Dose Ordered Sig/Jeanie Route Start Time Stop Time Status Last Admin Dose Admin Ondansetron HCl 4 mg Q4HP PRN IV 09/16/24 12:15 Morphine Sulfate 2 mg Q4HPRN PRN IV 09/16/24 12:15 Enoxaparin Sodium 40 mg DAILY SC 09/16/24 12:15 09/19/24 10:14 40 MG Nitroglycerin 0.4 mg Q5MINP PRN SL 09/16/24 12:15 Aspirin 81 mg DAILY PO 09/17/24 10:00 09/19/24 10:14 81 MG Atorvastatin Calcium 40 mg HS PO 09/16/24 22:00 09/18/24 22:29 40 MG Morphine Sulfate 2 mg Q30MP PRN IV 09/16/24 12:15 Docusate Sodium 100 mg DAILY PO 09/17/24 10:00 09/19/24 10:15 100 MG Albuterol 2.5 mg Q4HPRN PRN NEB 09/16/24 12:15 09/17/24 09:07 2.5 MG Ipratropium [place] 0.5 mg Q4HPRN PRN NEB 09/16/24 12:15 09/17/24 09:07 0.5 MG Pantoprazole Sodium 40 mg DAILY@0600 PO 09/18/24 06:00 09/19/24 05:40 40 MG Methylprednisolone Sodium Succinate 40 mg BID IV 09/17/24 22:00 09/19/24 10:14 40 MG Doxycycline Hyclate 100 ml @ 50 mls/hr Q12H IV 09/17/24 16:30 09/19/24 05:01 50 MLS/HR Albuterol 2.5 mg Q6HWA NEB 09/17/24 18:00 09/19/24 11:27 2.5 MG Ipratropium [place] 0.5 mg Q6HWA NEB 09/17/24 18:00 09/19/24 11:28 0.5 MG Lorazepam 0.5 mg Q8HP PRN PO 09/17/24 16:30 Citalopram Hydrobromide 40 mg DAILY PO 09/18/24 10:00 09/19/24 10:15 40 MG Acetaminophen 650 mg Q4HP PRN PO 09/18/24 17:45 09/19/24 02:33 650 MG Examination: GENERAL:Normal, HEENT:Normal, NECK:Normal, LUNGS:Normal, LUNGS:Abnormal (on oxygen), CVS:Normal, ABDOMEN:Normal, MSK:Normal, SKIN:Normal, NEURO:Normal, :Normal laboratory and microbiology Laboratory Tests 09/17/24 05:33 Test 09/17/24 05:33 Range/Units Serum Glucose 89 74-106 mg/dL Problem List/Assessment/Plan Problem List/Assessment/Plan #1 acute on chronic resp failure: cont oxygen #2 copd with exacerbation: steroids #3 ?pneumonia- gram positive/neg: doxy #4 ? chronic diastolic heart failure #5 anxiety #6 obesity #7 htn advance care planning-full code- time spent 19 mins Plan discussed with: Patient My Orders My Orders Orders - JD MORRIS MD Procedure Category Date Status Time * Cnc Supervisor CONS 09/18/24 Transmitted Consult * Cnc Supervisor CONS 09/19/24 Transmitted Consult Discontinue Aguilar ORALIA 09/19/24 Transmitted Catheter 14:[address] 09/19/24 Transmitted 14:29 Dietary Evaluation Review Comments: 1) Monitor PO intake, lab values, I/O 2) Continue current POC Expected Outcomes/Goals: To meet >75% estimated needs Fu 3-5 days Date of Service: Sep 19, 2024 Billing Provider: JD MORRIS MD Common Visit Codes: [id number] INP/OBS CARE(HIGH) Secondary Visit Codes: [id number] CARE PLAN 30 MINUTES JD MORRIS MD Sep 19, 2024 14:32
--- NOTE | 2024-09-19 16:04 | DVH ---
EXAM: CT Chest Without Intravenous Contrast CLINICAL INDICATION: pneumonia TECHNIQUE: Axial computed tomography images of the chest without intravenous contrast. This CT exam was performed using one or more of the following dose reduction techniques: automated exposure cont rol, adjustment of the mA and/or kV according to patient size, and/or use of iterative reconstruction technique. CONTRAST: RADIATION DOSE: CTDIvol = 19.44 mGy, DLP = 762.19 mGy-cm COMPARISON: None FINDINGS: LUNGS AND PLEURAL SPACES: Lung emphysema /COPD. Lingular atelectasis or scarring. Otherwise, no foc al consolidation. No significant effusion. No pneumothorax. HEART: Large cardiomegaly with small pericardial effusion. No significant coronary artery calcific ations. MEDIASTINUM: Small esophageal hiatal hernia. BONES/JOINTS: Unremarkable. No acute fracture. SOFT TISSUES: Unremarkable. VASCULATURE: Scattered calcified atherosclerotic disease of aorta. No thoracic aortic aneurysm. LYMPH NODES: Unremarkable. No enlarged lymph nodes. LIVER: Fatty infiltration of the liver. OTHER FINDINGS: . . IMPRESSION: 1. Large cardiomegaly with small pericardial effusion. 2. Small esophageal hiatal hernia. 3. Lung emphysema /COPD. Lingular atelectasis or scarring. Otherwise, no focal consolidation.
[2024-09-19] MEDS: LORazepam 0.5 MG TAB PO PRN (21:24)
[2024-09-20] VITALS (14 sets, daily range): BP systolic 134–164; BP diastolic 67–87; PULSE 60–80; RESP 15–21; TEMP 97.4–98.6; O2SAT 93–99
[2024-09-20] MEDS: MORPHINE SULFATE INJ 2 MG/ml SYRG IV PRN (04:26)
[2024-09-20] MEDS: ONDANSETRON HCL 4 MG/2 ML VIAL IV PRN (04:51)
--- NOTE | 2024-09-20 10:13 | DVHPN2 ---
Progress Note Date Seen: Sep 20, 2024 Medical Necessity Reason Pt with a Central, PICC or Fol: No Subjective Patient reports: No new complaints Review of Systems: HEENT:Normal, CVS:Normal, RESPIRATORY:Normal, GI:Normal, :Normal, MSK:Normal, NEURO:Normal Objective vital signs Vital Sign Date Time Temp Pulse Resp B/P (MAP) Pulse Ox O2 Delivery O2 Flow Rate FiO2 09/20/24 09:00 97.7 67 21 154/71 (98) 96 97.7 09/20/24 06:50 Nasal Cannula 3.0 09/20/24 06:50 32 Total Intake and Output 09/19/24 09/19/24 09/20/24 15:00 23:00 07:00 Intake Total 100 ml 620 ml 850 ml Output Total 1500 ml Balance 100 ml -880 ml 850 ml medications Current Medications Medications Dose Ordered Sig/Jeanie Route Start Time Stop Time Status Last Admin Dose Admin Ondansetron HCl 4 mg Q4HP PRN IV 09/16/24 12:15 09/20/24 04:51 4 MG Morphine Sulfate 2 mg Q4HPRN PRN IV 09/16/24 12:15 09/20/24 04:26 2 MG Enoxaparin Sodium 40 mg DAILY SC 09/16/24 12:15 09/20/24 09:32 40 MG Nitroglycerin 0.4 mg Q5MINP PRN SL 09/16/24 12:15 Aspirin 81 mg DAILY PO 09/17/24 10:00 09/20/24 09:40 81 MG Atorvastatin Calcium 40 mg HS PO 09/16/24 22:00 09/19/24 21:24 40 MG Morphine Sulfate 2 mg Q30MP PRN IV 09/16/24 12:15 Docusate Sodium 100 mg DAILY PO 09/17/24 10:00 09/19/24 21:24 100 MG Albuterol 2.5 mg Q4HPRN PRN NEB 09/16/24 12:15 09/17/24 09:07 2.5 MG Ipratropium [place] 0.5 mg Q4HPRN PRN NEB 09/16/24 12:15 09/17/24 09:07 0.5 MG Pantoprazole Sodium 40 mg DAILY@0600 PO 09/18/24 06:00 09/20/24 04:52 40 MG Methylprednisolone Sodium Succinate 40 mg BID IV 09/17/24 22:00 09/20/24 09:32 40 MG Doxycycline Hyclate 100 ml @ 50 mls/hr Q12H IV 09/17/24 16:30 09/20/24 04:05 50 MLS/HR Albuterol 2.5 mg Q6HWA [facility] 09/17/24 18:00 09/20/24 06:50 2.5 MG Ipratropium [place] 0.5 mg Q6HWA [facility] 09/17/24 18:00 09/20/24 06:50 0.5 MG Lorazepam 0.5 mg Q8HP PRN PO 09/17/24 16:30 09/19/24 21:24 0.5 MG Citalopram Hydrobromide 40 mg DAILY PO 09/18/24 10:00 09/20/24 09:32 40 MG Acetaminophen 650 mg Q4HP PRN PO 09/18/24 17:45 09/19/24 02:33 650 MG Examination: GENERAL:Normal, HEENT:Normal, NECK:Normal, LUNGS:Normal, CVS:Normal, ABDOMEN:Normal, MSK:Normal, MSK:Abnormal (right side chest zoster), SKIN:Normal, NEURO:Normal, :Normal laboratory and microbiology Laboratory Tests 09/17/24 05:33 Test 09/17/24 05:33 Range/Units Serum Glucose 89 74-106 mg/dL Problem List/Assessment/Plan Problem List/Assessment/Plan #1 acute on chronic resp failure: cont oxygen #2 copd with exacerbation: steroids #3 ?pneumonia- gram positive/neg: doxy #4 ? chronic diastolic heart failure #5 anxiety #6 obesity #7 htn #8 right chest zoster: acyclovir advance care planning-full code- time spent 19 mins Plan discussed with: Patient My Orders My Orders Orders - JD MORRIS MD Procedure Category Date Status Time * Paring Machine Operator CONS 09/19/24 Transmitted Consult Discontinue Aguilar ORALIA 09/19/24 In Process Catheter 14:[address] 09/19/24 Resulted 14:29 Discontinue Tele ORALIA 09/19/24 In Process 14:31 Transfer Orders XFER 09/19/24 Transmitted 14:31 * Swallow Request ST 09/20/24 Transmitted 05:22 Dietary Evaluation Review Comments: 1) Monitor PO intake, lab values, I/O 2) Continue current POC Expected Outcomes/Goals: To meet >75% estimated needs Fu 3-5 days Date of Service: Sep 20, 2024 Billing Provider: JD MORRIS MD Common Visit Codes: [id number] INP/OBS CARE(HIGH) JD MORRIS MD Sep 20, 2024 10:13
[2024-09-20] MEDS: ACYCLOVIR 400 MG TAB PO ONE (11:22)
[2024-09-20] MEDS: KETOROLAC TROMETH 30 MG/ML 1ML VIAL IV ONE (11:22)
[2024-09-20] MEDS: LISINOPRIL 20 MG TAB PO ONE (11:23)
[2024-09-20] MEDS: ACYCLOVIR 400 MG TAB PO SCH (13:58)
--- NOTE | 2024-09-20 16:06 | DVHDS2 ---
Discharge Summary Date of Admission Sep 16, 2024 at 12:11 Date of Discharge: Sep 20, 2024 Labs/Diagnostic Data: Laboratory Results Test 09/17/24 05:33 09/16/24 16:18 09/16/24 12:39 09/16/24 10:10 White Blood Count 13.4 10^3/uL (4.4-10.8) Red Blood Count 5.99 10^6/uL (4.0-5.20) Hemoglobin 17.3 g/dL (12.2-16.2) Hematocrit 51.7 % (36.0-46.0) Mean Corpuscular Volume 86.4 fL (80.0-100.0) Mean Corpuscular Hemoglobin 28.9 pg (28.0-32.0) Mean Corpuscular Hemoglobin Concent 33.4 g/dL (32.0-36.0) Red Cell Distribution Width 15.2 % (11.8-14.3) Platelet Count 249 10^3/uL (140-450) Mean Platelet Volume 8.9 fL (6.9-10.8) Neutrophils (%) (Auto) 76.6 % (37.0-80.0) Lymphocytes (%) (Auto) 15.7 % (10.0-50.0) Monocytes (%) (Auto) 7.3 % (0.0-12.0) Eosinophils (%) (Auto) 0.2 % (0.0-7.0) Basophils (%) (Auto) 0.2 % (0.0-2.0) Neutrophils # (Auto) 10.3 10 ^3/uL (1.6-8.6) Lymphocytes # (Auto) 2.1 10 ^3/uL (0.4-5.4) Monocytes # (Auto) 1.0 10 ^3/uL (0-1.3) Eosinophils # (Auto) 0 10 ^3/uL (0-0.8) Basophils # (Auto) 0 10 ^3/uL (0-0.2) Nucleated Red Blood Cells 0.2 % Sodium Level 142 mmol/L (136-145) Potassium Level 4.1 mmol/L (3.5-5.1) Chloride Level 101 mmol/L (98-107) Carbon Dioxide Level 30 mmol/L (20-31) Anion Gap 11 (5-15) Blood Urea Nitrogen 17 mg/dL (9-23) Creatinine 0.85 mg/dL (0.550-1.02) Glomerular Filtration Rate Calc 73 mL/min (>90) BUN/Creatinine Ratio 20.0 (10.0-20.0) Serum Glucose 89 mg/dL (74-106) Calcium Level 10.2 mg/dL (8.7-10.4) Total Bilirubin 1.0 mg/dL (0.2-1.0) Aspartate Amino Transferase (AST) 10 U/L (<34) Alanine Aminotransferase (ALT) < 9 U/L (7-40) Alkaline Phosphatase 57 U/L (46-116) Total Protein 7.1 g/dL (5.7-8.2) Albumin 4.6 g/dL (3.2-4.8) Urine Color Light-yellow (Yellow) Urine Clarity Clear (Clear) Urine pH 5.5 (5.0-9.0) Urine Specific [place] 1.010 (1.001-1.035) Urine Protein Trace (Negative) Urine Ketones Negative (Negative) Urine Blood Negative /uL (Negative) Urine Nitrite Negative (Negative) Urine Bilirubin Negative (Negative) Urine Urobilinogen Normal mg/dL (Negative) Urine Leukocyte Esterase Negative /uL (Negative) Urine RBC <1 /hpf (0 - 4) Urine Microscopic WBC 1 /HPF (0-5) Urine Squamous Epithelial Cells None seen /hpf (<5) Urine Bacteria None seen /hpf (None Seen) Urine Hyaline Casts Few /lpf (0 - 2) Urine Mucus Few (None Seen) Urine Glucose Normal mg/dL (Normal) Troponin I High Sensitivity 8 ng/L (</=34) B-Type Natriuretic Peptide 53.49 pg/mL (0-100) Other Laboratory Tests 09/17/24 05:33 Brief Hx & Hospital Course: see dictated note Condition at Discharge: Fair Final Diagnosis/Problems List copd Discharge Disposition: Intermediate Facility Discharge Instruct/Medications Diet: Cardiac 2g Na,low cholest Activity: No Restrictions, As Tolerated Follow Up/Referral: luis Ojeda Medications: per jun Discharge Statement: "Patient was advised to return to the ER or call 911 if any headaches, dizziness, shortness of breath, chest pain, abdominal pain, bleeding, fevers, or worsening of medical condition. Patient was counseled about treatment plan, medications, possible side effects, patientverbalized understanding. All questions were answered to the best of my ability. This discharge took greater then 30 minutes in planning, reviewing documentation, counseling the patient, and discussing with other team members." ASSESSMENT ASSESSMENT Assessment copd Date of Service: Sep 20, 2024 Billing Provider: JD MORRIS MD Common Visit Codes: [id number] DISCH DAY >30min JD MORRIS MD Sep 20, 2024 16:06
--- NOTE | 2024-09-20 16:27 | DVHDS ---
DATE OF DISCHARGE: 09/20/2024 HISTORY OF PRESENT ILLNESS: The patient is a 73-year-old lady who is admitted with history of shortness of breath and chest discomfort and has a history of COPD, CHF, and respiratory failure. HOSPITAL COURSE: The patient had a CT of the chest that showed evidence of cardiomegaly with COPD. The patient had a head CT that was unremarkable. The patient was placed on steroids along with antibiotics. Echocardiogram done showed ejection fraction of about 60%. The patient was also noted to have right chest shingles. [facility] as per med reconciliation. FINAL DIAGNOSES: * Acute on chronic respiratory failure. * COPD exacerbation. * Questionable pneumonia, gram positive, gram negative. * Chronic diastolic heart failure. * Anxiety. * Obesity. * Hypertension. * Right chest herpes zoster. Time spent in discharge planning and review of plan with the patient, nursing, and paperwork was 39 minutes. MD JOHN Short/VAN TID: [id number] RECEIPT: [id number]
[2024-09-20] MEDS: DOXYCYCLINE 100 MG TAB/CAP PO SCH (23:10)
[2024-09-21] VITALS (9 sets, daily range): BP systolic 125–176; BP diastolic 63–86; PULSE 56–71; RESP 15–20; TEMP 98.1–98.5; O2SAT 94–100
[2024-09-21 05:58] LABS: Basophils # (auto) 0 10 ^3/uL (0-0.2); Basophils % (auto) 0.1 % (0.0-2.0); Eosinophils # (auto) 0 10 ^3/uL (0-0.8); Eosinophils % (auto) 0.4 % (0.0-7.0); Hemoglobin 16.5 g/dL (12.2-16.2); Lymphocytes % (auto) 9.3 % (10.0-50.0); Mean Corpuscular Hemoglobin 28.6 pg (28.0-32.0); Mean Corpuscular Volume 86.5 fL (80.0-100.0); Monocytes # (auto) 1.3 10 ^3/uL (0-1.3); Monocytes % (auto) 12.6 % (0.0-12.0); Neutrophils # (auto) 8.2 10 ^3/uL (1.6-8.6); Neutrophils % (auto) 77.6 % (37.0-80.0); Nucleated Red Blood Cells % 0.1 %; Platelet Count (auto) 207 10^3/uL (140-450); Red Blood Cells 5.78 10^6/uL (4.0-5.20); Red Cell Distribution Width 15.1 % (11.8-14.3); White Blood Cell 10.6 10^3/uL (4.4-10.8)
[2024-09-21 06:21] LABS: Potassium 4.5 mmol/L (3.5-5.1)
[2024-09-21 06:22] LABS: Anion Gap 6 (5-15); Calcium 8.8 mg/dL (8.7-10.4)
[2024-09-21 06:24] LABS: Carbon Dioxide 34 mmol/L (20-31); Chloride 94 mmol/L (98-107); Sodium 134 mmol/L (136-145)
[2024-09-21 06:27] LABS: BUN/Creatinine Ratio 26.2 (10.0-20.0); Blood Urea Nitrogen 17 mg/dL (9-23)
[2024-09-21 06:44] LABS: Glucose 124 mg/dL (74-106)
[2024-09-21] MEDS: predniSONE 20 MG TAB PO SCH (08:37)
[2024-09-21] MEDS: LISINOPRIL 20 MG TAB PO SCH (08:38)
--- NOTE | 2024-09-21 10:50 | DVHPN2 ---
Subjective c/o pain rt chest wall from shingles/had bm today/no nausea or vomiting/ Changes from previous H/P or p: No Changes Eyes: No Pain, No Vision change, No Conjunctivae inflammation, No Eyelid inflammation, No Other, No Redness ENT: No Ear pain, No Ear discharge, No Nose pain, No Nose discharge, No Nose congestion, No Mouth pain, No Mouth swelling, No Throat pain, No Throat swelling, No Other Cardiovascular: Chest Pain; No Palpitations, No Orthopnea, No Paroxysmal Noc. Dyspnea, No Edema, No Lt Headedness, No Other Respiratory: No Cough, No Dry; Shortness of breath, SOB with excertion; No Wheezing, No Hemoptysis, No Pleuritic Pain, No Sputum, No Other Gastrointestinal: No Nausea, No Vomiting, No Abdominal Pain, No Diarrhea, No Constipation, No Melena, No Hematochezia, No Other Genitourinary: No Dysuria, No Frequency, No Incontinence, No Hematuria, No Retention, No Other Musculoskeletal: No other, No neck pain, No shoulder pain, No arm pain, No back pain, No hand pain, No leg pain, No foot pain Skin: No Rash, No Lesions, No Jaundice, No Bruising, No Other Objective Vitals Vital Signs Date Time Temp Pulse Resp B/P (MAP) Pulse Ox O2 Delivery O2 Flow Rate FiO2 09/21/24 09:00 98.3 56 19 126/78 (94) 97 98.3 09/21/24 06:20 Nasal Cannula 3.0 09/21/24 06:20 32 Intake/Output Intake and Output 09/21/24 07:00 Intake Total 500 ml Balance 500 ml Intake Oral 500 ml # Voids 2 General Appearance: Alert, Oriented X3, Cooperative Lungs: Clear to auscultation Cardiovascular: Regular rate, Normal S1, Normal S2 Abdomen: Normal bowel sounds, Soft, No tenderness Musculoskeletal: Normal sensory function, Normal motor function Extremities: No edema Psych/Mental Status: Mental status NL, Mood NL, Other (whispering voice/clarified with nurse did talk to her) Medications Current Medications Medications Dose Ordered Sig/Jeanie Route Start Time Stop Time Status Last Admin Dose Admin Enoxaparin Sodium 40 mg DAILY SC 09/16/24 12:15 09/21/24 08:37 40 MG Aspirin 81 mg DAILY PO 09/17/24 10:00 09/21/24 08:37 81 MG Atorvastatin Calcium 40 mg HS PO 09/16/24 22:00 09/20/24 23:09 40 MG Docusate Sodium 100 mg DAILY PO 09/17/24 10:00 09/21/24 08:37 100 MG Albuterol 2.5 mg Q4HPRN PRN NEB 09/16/24 12:15 09/17/24 09:07 2.5 MG Ipratropium [place] 0.5 mg Q4HPRN PRN NEB 09/16/24 12:15 09/17/24 09:07 0.5 MG Pantoprazole Sodium 40 mg DAILY@0600 PO 09/18/24 06:00 09/21/24 05:23 40 MG Albuterol 2.5 mg Q6HWA NEB 09/17/24 18:00 09/21/24 06:20 2.5 MG Ipratropium [place] 0.5 mg Q6HWA NEB 09/17/24 18:00 09/21/24 06:20 0.5 MG Citalopram Hydrobromide 40 mg DAILY PO 09/18/24 10:00 09/21/24 08:38 40 MG Acetaminophen 650 mg Q4HP PRN PO 09/18/24 17:45 09/19/24 02:33 650 MG Acyclovir 800 mg 5XD PO 09/20/24 14:00 09/21/24 08:51 800 MG Prednisone 40 mg DAILY PO 09/21/24 10:00 09/21/24 08:37 40 MG Doxycycline Monohydrate 100 mg Q12HR PO 09/20/24 22:00 09/21/24 08:38 100 MG Lisinopril 20 mg DAILY PO 09/21/24 10:00 09/21/24 08:38 20 MG Laboratory Results Laboratory Tests 09/21/24 05:07 Chemistry Test 09/21/24 05:07 Calcium Level 8.8 mg/dL (8.7-10.4) Urinalysis Test 09/16/24 16:18 Urine Color Light-yellow (Yellow) Urine Clarity Clear (Clear) Urine pH 5.5 (5.0-9.0) Urine Specific [place] 1.010 (1.001-1.035) Urine Protein Trace (Negative) H Urine Ketones Negative (Negative) Urine Blood Negative /uL (Negative) Urine Nitrite Negative (Negative) Urine Bilirubin Negative (Negative) Urine Urobilinogen Normal mg/dL (Negative) Urine Leukocyte Esterase Negative /uL (Negative) Urine RBC <1 /hpf (0 - 4) Urine Microscopic WBC 1 /HPF (0-5) Urine Squamous Epithelial Cells None seen /hpf (<5) Urine Bacteria None seen /hpf (None Seen) Urine Hyaline Casts Few /lpf (0 - 2) Urine Mucus Few (None Seen) Urine Glucose Normal mg/dL (Normal) Labs and/or images reviewed: Labs reviewed by me, Image(s) reviewed by me Assessment/Plan Assessment/Plan copd exacerbation- better chronic respiratory failure on o2 at baseline/ chest wall pain from shingles- treat htn stable chronic anxiety on ssri dvt prophylaxis hiatal hernia bedside pt/up in chair Plan discussed with: Patient, Other My Orders Orders - WALI GUILLAUME MD Procedure Category Date Status Time Silver Sulfadiazine PHA 09/21/24 Logged (Silvadene) 22:00 Gabapentin Capsule PHA 09/21/24 Logged (Neurontin Capsule) 20:00 Date of Service: Sep 21, 2024 Billing Provider: WALI GUILLAUME MD Common Visit Codes: [id number] INP/OBS CARE(MOD) WALI GUILLAUME MD Sep 21, 2024 10:50
[2024-09-21] MEDS ORDERED: HYDROcodone-ACET 5/325MG TAB PO PRN (11:00)
[2024-09-21] MEDS ORDERED: GABAPENTIN 100 MG CAP PO ONE (20:00)
[2024-09-21] MEDS ORDERED: SILVER SULFADIAZINE 1 % TOPICAL CREAM 50GM TOP SCH (22:00)
== END 2024-09-21 14:00 | DRG 177 ==
LOC: ER 09:23 → EDBD 09:23 → OVERFLOW 12:11 → TELE-WESTW 16:46 → WEST WING 09-19 22:49 → EAST 09-20 16:16
PROVIDERS: ADMIT Internal Medicine; ATTEND Internal Medicine
DX: J15.69 Pneumonia due to other Gram-negative bacteria (principal); J96.21 Acute and chronic respiratory failure with hypoxia; J44.1 Chronic obstructive pulmonary disease with (acute) exacerbation; I20.0 Unstable angina; I50.32 Chronic diastolic (congestive) heart failure; J44.0 Chronic obstructive pulmonary disease with (acute) lower respiratory infection; J15.9 Unspecified bacterial pneumonia; I11.0 Hypertensive heart disease with heart failure; Z99.81 Dependence on supplemental oxygen; Z68.31 Body mass index [BMI] 31.0-31.9, adult; E66.9 Obesity, unspecified; B02.9 Zoster without complications; F41.9 Anxiety disorder, unspecified; K44.9 Diaphragmatic hernia without obstruction or gangrene; T38.0X5A Adverse effect of glucocorticoids and synthetic analogues, initial encounter; F17.200 Nicotine dependence, unspecified, uncomplicated; E78.5 Hyperlipidemia, unspecified; Z79.899 Other long term (current) drug therapy
CPT/HCPCS: 36415; 70450; 71045; 71250; 80048; 80053; 81001; 83880; 84484; 85025; 92610; 93306; 94640; 96372; 96374; 97110; 97116; 97163; 97530; 99291; G0378; J1885; J2405; J2470